=== PATIENT | female | born 1965 | race Caucasian/White ===

== ENCOUNTER → 2020-05-22 | Outpatient (CLI) | payer OTHER ==
[~2020-05-22] MED LIST: COLACE 100MG C100 MG PO; IBUPROFEN600 MG PO; NORCO 5-325 TA1 EACH PO; PROGESTERONE200 MG PO
[2020-05-22 10:50] LABS: HEMOGLOBIN 14.7 gm/dl (12.3-15.3); RED BLOOD COUNT 4.64 M/UL (4.00-5.10); WHITE BLOOD COUNT 5.8 K/UL (4.5-11.0)
[2020-05-22 11:21] LABS: BUN/CREATININE RATIO 11 (0-10)
[2020-05-23 09:14] LABS: THYROXINE (T4) 5.7 ug/dL (4.5-12.0)
== END ==
LOC: LAB 09:34
PROVIDERS: Nurse Practitioner Family
DX: R07.9 Chest pain, unspecified (principal); E78.5 Hyperlipidemia, unspecified; R53.83 Other fatigue; Z86.16 Personal history of COVID-19
CPT/HCPCS: 36415; 71046; 80053; 80061; 84436; 84443; 84480; 85025; 93005